=== PATIENT | female | born 1985 | race Caucasian/White ===

== ENCOUNTER → 2020-04-26 | Outpatient (CLI) | payer BC ==
[~2020-04-26] MED LIST: OMNIPAQUE 350 MG/ML, 150 ML BOTTLE ONE
== END | disposition home or self-care (01) ==
LOC: RAD 11:26
PROVIDERS: ATTEND Surgery
DX: I82.592 Chronic embolism and thrombosis of other specified deep vein of left lower extremity (principal); D68.51 Activated protein C resistance
CPT/HCPCS: 74177; Q9967